=== PATIENT | female | born 1990 | race Two or more races ===

== ENCOUNTER 2020-05-25 21:04 | Emergency (ER) | payer OTHER ==
[2020-05-25 21:11] VITALS: BP 131/83; PULSE 99; TEMP 97.8; BMI 28.3
[2020-05-25] MEDS ORDERED: METOCLOPRAMIDE HCL 10 MG TABLET (FP) PO ONE ×2 (21:53→22:01)
[2020-05-25] MEDS ORDERED: ACETAMINOPHEN 325 MG TABLET (FP) PO ONE (21:54)
[2020-05-25] MEDS ORDERED: ACETAMINOPHEN 325 MG TABLET (FP) ONE (22:01)
== END 2020-05-25 23:48 | disposition home or self-care (01) ==
LOC: JER 21:04
DX: R51.9 Headache, unspecified (principal)
CPT/HCPCS: 70450-TC; 84703; 99284-25